=== PATIENT | male | born 1970 | race Caucasian/White ===

== ENCOUNTER 2017-08-21 11:38 | Emergency (ER) | payer OTHER ==
[2017-08-21] MEDS: LORAZEPAM 2 MG INJ IV (12:13)
[2017-08-21] MEDS: SOD CHLORIDE 0.9% 1,000 ML IV (12:13)
[2017-08-21] MEDS: DEXTROSE 5%-0.45% NACL 500 ML BAG IV (12:13)
[2017-08-21 12:14] LABS: ADD MAN DIFF? NO
[2017-08-21] MEDS: THIAMINE 100 MG TAB PO (12:15)
[2017-08-21] MEDS: FOLIC ACID 1 MG TAB PO (12:15)
[2017-08-21 12:16] LABS: BASOPHIL # 0.1 10^3/ul (0.0-0.1); BASOPHILS % 0.8 % (0.0-2.0); EOSINOPHILS # 0.1 10^3/ul (0.0-0.5); EOSINOPHILS % 0.6 % (0.0-7.0); HEMATOCRIT 40.6 % (42.0-52.0); HEMOGLOBIN 13.7 g/dl (14.0-18.0); LYMPHOCYTES # 2.2 10^3/ul (0.8-2.9); LYMPHOCYTES % 24.8 % (15.0-51.0); MEAN CORPUSCULAR HGB CONC 33.7 g/dl (32.0-37.0); MEAN CORPUSCULAR VOLUME 91.9 fl (82.0-101.0); MEAN PLATELET VOLUME 9.5 fl (7.4-10.4); MONOCYTE # 0.7 10^3/ul (0.3-0.9); MONOCYTES % 7.4 % (0.0-11.0); NEUTROPHILS % 66.2 % (39.0-77.0); PLATELET COUNT 303 10^3/UL (140-415); RED BLOOD COUNT 4.42 10^6/ul (4.70-6.10); RED CELL DISTRIBUTION WIDTH 13.2 % (11.5-14.5)
[2017-08-21 12:36] LABS: ALANINE AMINOTRANSFERASE 29 IU/L (13-69); ALBUMIN 4.9 g/dl (3.3-4.9); ALBUMIN/GLOBULIN RATIO 1.22; ALKALINE PHOSPHATASE 87 IU/L (42-121); ANION GAP 18 (8-16); ASPARTATE AMINO TRANSFERASE 29 IU/L (15-46); BILIRUBIN,INDIRECT 0.3 mg/dl (0-1.1); BILIRUBIN,TOTAL 0.3 mg/dl (0.2-1.3); BLOOD UREA NITROGEN 12 mg/dl (7-20); CALCIUM 9.3 mg/dl (8.4-10.2); CARBON DIOXIDE 25 mmol/L (21-31); CHLORIDE 102 mmol/L (97-110); CREATININE 0.74 mg/dl (0.61-1.24); GLUCOSE 106 mg/dl (70-220); SODIUM 141 mmol/L (135-144); TOTAL PROTEIN 8.9 g/dl (6.1-8.1)
[2017-08-21 13:21] LABS: TROPONIN-I < 0.010 ng/ml (0.000-0.120)
== END 2017-08-21 13:35 | disposition home or self-care (01) ==
LOC: E/R 11:38
DX: F10.230 Alcohol dependence with withdrawal, uncomplicated (principal); E86.0 Dehydration
CPT/HCPCS: 36415; 71045; 80053; 82962; 84484; 85025; 93005; 96374; 99285-25

== ENCOUNTER 2017-09-07 08:18 | Emergency (ER) | payer OTHER ==
[2017-09-07] MEDS: LORAZEPAM 1 MG TAB PO (09:23)
== END 2017-09-07 11:23 | disposition home or self-care (01) ==
LOC: FTE 08:18
DX: F41.9 Anxiety disorder, unspecified (principal); F10.99 Alcohol use, unspecified with unspecified alcohol-induced disorder; R06.02 Shortness of breath
CPT/HCPCS: 93005; 99283-25